=== PATIENT | female | born 1990 | race American Indian/Alaskan Native ===

== ENCOUNTER 2017-02-05 18:04 | Emergency (ER) | payer MEDICAID ==
[2017-02-05 18:38] VITALS: BP 134/94
[2017-02-05 19:18] LABS: Bilirubin,Urine NEG (Negative); Blood,Urine NEG (Negative); Ketones,Urine NEG (Negative); Leukocyte Esterase,Urine NEG (Negative); Nitrite,Urine NEG (Negative); Protein,Urine <15 mg/dL mg/dL (Negative); RBC,Urine < 1.0 /HPF (0.0-6.0); Urobilinogen,Urine < 2.0 mg/dL (<2.0)
[2017-02-05 19:23] LABS: Anion Gap 15 mmol/L; Basophils % (Auto) 0.6 % (0.0-1.8); Blood Urea Nitrogen 9 mg/dL (7-17); Calcium 8.9 mg/dL (8.4-10.2); Carbon Dioxide 24 mmol/L (22-30); Chloride 101.4 mmol/L (98-107); Eosinophils % (Auto) 2.8 % (0.0-4.3); Glucose 91 mg/dL (65-100); Hematocrit 32.8 % (30.3-42.9); Hemoglobin 10.5 gm/dl (10.1-14.3); Mean Corpuscular HGB Conc 32 % (30-34); Mean Corpuscular Volume 72 fl (79-97); Platelet Count 390 K/mm3 (140-440); Potassium 3.5 mmol/L (3.6-5.0); Red Blood Count 4.54 M/mm3 (3.65-5.03); Red Cell Distribution Width 18.1 % (13.2-15.2); Sodium 137 mmol/L (137-145); White Blood Count 5.4 K/mm3 (4.5-11.0)
[2017-02-05 19:26] LABS: Mean Corpuscular Hemoglobin 23 pg (28-32)
--- NOTE | 2017-02-06 07:24 | XRay Report ---
CHEST 2 VIEWS INDICATION: Chest pain for 2 days. Right arm tingling for 1 day. Smoker. Shortness of breath.. COMPARISON: None similar. FINDINGS: PA and lateral chest radiographs demonstrate normal cardiomediastinal silhouette. Clear lungs. Intact bones. Abdomen shielded. CONCLUSION: No acute disease in the chest. Thank you for the opportunity to participate in this patient's care.
--- NOTE | 2017-02-08 12:37 | ED Elopement Review ---
ED Pt Elopement review - Results review Lab results: Laboratory Tests 02/05/17 02/05/17 02/05/17 18:51 18:51 18:55 WBC 5.4 RBC 4.54 Hgb 10.5 Hct 32.8 MCV 72 L MCH 23 L MCHC 32 RDW 18.1 H Plt Count 390 Lymph % (Auto) 34.2 [place] % (Auto) 7.2 Eos % (Auto) 2.8 Baso % (Auto) 0.6 Lymph # 1.9 [place] # 0.4 Eos # 0.2 Baso # 0.0 Seg Neutrophils % 55.2 Seg Neutrophils # 3.0 Sodium 137 Potassium 3.5 L Chloride 101.4 Carbon Dioxide 24 Anion Gap 15 BUN 9 Creatinine 0.6 L Estimated GFR > 60 BUN/Creatinine Ratio 15.00 Glucose 91 Calcium 8.9 Troponin T < 0.010 Urine Color Yellow Urine Turbidity Clear Urine pH 6.0 Ur Specific Talent 1.013 Urine Protein <15 mg/dl Urine Glucose (UA) Neg Urine Ketones Neg Urine Blood Neg Urine Nitrite Neg Urine Bilirubin Neg Urine Urobilinogen < 2.0 Ur Leukocyte Esterase Neg Urine WBC (Auto) 1.0 Urine RBC (Auto) < 1.0 U Epithel Cells (Auto) 1.0 Urine HCG, Qual Negative - Call Back decision Pt Call Back Decision: No action required
== END 2017-02-06 02:42 | disposition left against medical advice (07) ==
LOC: ED 18:04
DX: M79.1 Myalgia (principal); R07.89 Other chest pain; R20.2 Paresthesia of skin; R11.2 Nausea with vomiting, unspecified; Z91.013 Allergy to seafood; Z91.048 Other nonmedicinal substance allergy status; F17.200 Nicotine dependence, unspecified, uncomplicated; Z53.21 Procedure and treatment not carried out due to patient leaving prior to being seen by health care provider
CPT/HCPCS: 36415; 71020; 80048; 81001; 81025; 84484; 85025; 93005; 93010